=== PATIENT | male | born 1970 | race Caucasian/White ===

== ENCOUNTER → 2024-08-06 | Outpatient (CLI) | payer BC, OTHER, SELFPAY ==
--- NOTE | 2024-08-06 13:07 | XR_ITS ---
Examination: Foot, left, 3 views Technique: AP, oblique, lateral views foot, 3 views Date and time of exam: August 06, 2024 1317 hours INDICATIONS: Left foot pain beginning one week ago. FINDINGS: Mild osteopenia. Mild narrowing first metatarsophalangeal joint No fracture or No dislocation IMPRESSION: Mild narrowing first metatarsophalangeal joint
[2024-08-06 14:34] LABS: Sed Rate (ESR) 17 mm/hr (0-20)
[2024-08-06 14:39] LABS: C-Reactive Protein 1.8 mg/dL (0.0-0.9); Uric Acid 8.2 mg/dL (3.7-9.2)
[2024-08-06 15:11] LABS: RA Screen Negative (Negative)
== END | disposition home or self-care (01) ==
LOC: CDIM 13:00 → COPL 13:28
PROVIDERS: PCP Nurse Practitioner Family; Referring Provider Nurse Practitioner Family; Visit Provider Nurse Practitioner Family
DX: M85.872 Other specified disorders of bone density and structure, left ankle and foot (principal)
CPT/HCPCS: 36415; 73630; 84550; 85652; 86140; 86430

== ENCOUNTER → 2024-09-11 | Outpatient (CLI) | payer BC, OTHER, SELFPAY ==
--- NOTE | 2024-09-11 11:00 | XR_ITS ---
Examination: Ultrasound soft tissue extremity left foot TECHNIQUE: Grayscale sonographic images soft tissue medial left foot Date and time: September 11, 2024 1058 hours INDICATIONS: Patient states palpable lump with pain in the medial foot one month. FINDINGS: Mild free fluid adjacent to the tibialis anterior tendon No soft tissue mass IMPRESSION: Consider MRI ankle without contrast follow-up to exclude tendinitis of the tibialis tendon
== END | disposition home or self-care (01) ==
PROVIDERS: PCP Nurse Practitioner Family; Referring Provider Nurse Practitioner Family; Visit Provider Nurse Practitioner Family
DX: M10.072 Idiopathic gout, left ankle and foot (principal); M79.672 Pain in left foot; M72.2 Plantar fascial fibromatosis
CPT/HCPCS: 76882

== ENCOUNTER → 2024-11-17 | Outpatient (CLI) | payer BC, OTHER, SELFPAY ==
--- NOTE | 2024-11-17 12:00 | XR_ITS ---
Examination: MRI left ankle, without contrast Date and time of exam: November 17, 2024, 1316 hours INDICATIONS: Onset 2 months ago of ankle pain cannot bear weight on the ankle numbness paresthesias joint clicking 2 months Technique: Multiple axial sagittal and coronal images of the left ankle have been obtained with the Siemens high-resolution 1.5 Mague MRI scanner. Images obtained include T2-weighted fat-suppressed sagittal sections, TR 3500, TE 46, T2 weighted coronal fat suppressed images, TR 3050, TE 84, T2-weighted transverse fat suppressed images, TR 3260, TE 63, proton density transverse images, TR 4720 TE 46, and T1 weighted coronal images, TR 560, TE 13. Findings: Biconvex thickening of the Achilles tendon Normal plantar fascia Abnormal marrow edema involving the medial mid and lateral cuneiforms Marrow edema also involving the bases of the first and second metatarsals Anterior posterior inferior tibiofibular ligaments intact Partial tears of the anterior posterior talar fibular ligaments Tendinitis peroneus longus and brevis IMPRESSION: Significant marrow edema involving the medial, mid and lateral cuneiforms as well as bases of the first and second metatarsals, recommend CT scan foot without contrast follow-up to differentiate bone contusion from nondisplaced fractures Partial tears of the anterior posterior talar fibular ligaments
== END | disposition home or self-care (01) ==
LOC: SMRI 11:26
PROVIDERS: PCP Nurse Practitioner Family; Referring Provider Nurse Practitioner Family; Visit Provider Nurse Practitioner Family
DX: M25.472 Effusion, left ankle (principal); S93.492A Sprain of other ligament of left ankle, initial encounter; X58.XXXA Exposure to other specified factors, initial encounter
CPT/HCPCS: 73721